=== PATIENT | male | born 2000 | race Caucasian/White ===

== ENCOUNTER 2024-01-01 16:42 | Emergency (ER) | payer BC, SELFPAY ==
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
[2024-01-01 16:52] VITALS: BP 150/90; PULSE 100; O2SAT 100
[2024-01-01 16:54] VITALS: BMI 31.0
[2024-01-01 17:00] VITALS: BP 150/87; PULSE 96; RESP 20; TEMP 37; O2SAT 98
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
[2024-01-01] MEDS: Acetaminophen 325 MG TABLET 975 MG PO (17:09)
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
--- NOTE | 2024-01-01 20:47 | PC.NURSE ---
Report called to Lisbeth (beet end supervisor at [facility]).
[2024-01-01 20:50] VITALS: BP 129/89; PULSE 90; RESP 20; TEMP 36.7; O2SAT 99
== END 2024-01-01 21:45 ==
PROVIDERS: Emergency Provider Emergency Medicine
DX: S00.93XA Contusion of unspecified part of head, initial encounter (principal); R51.9 Headache, unspecified; F60.0 Paranoid personality disorder; H57.12 Ocular pain, left eye; Y04.2XXA Assault by strike against or bumped into by another person, initial encounter; Y93.9 Activity, unspecified; Y92.9 Unspecified place or not applicable; Y99.8 Other external cause status
CPT/HCPCS: 70450; 70486; 99284; 99285